=== PATIENT | male | born 1970 | race Caucasian/White ===

== ENCOUNTER 2016-09-20 19:59 | Emergency (ER) | payer OTHER ==
[~2016-09-20 19:59] MED LIST: FLEXERIL10 MG PO; IBUPROFEN600 MG PO; KETOPROFEN PO; LORTAB 5/500 TA1 TA2 PO; MEDROL4 MG/DOSE- PO; NO MEDICATIONS; PERCOCET10 PO; SOMA PO
[2016-09-20 22:00] LABS: BASOPHIL# 0.3 X10e3 (0-0.3); HEMOGLOBIN 13.7 gm/dL (13.0-16.0); LYMPHOCYTE# 0.7 X10e3 (1.0-3.5); MEAN CORPUSCULAR HEMOGLOBIN 30.7 PG (28-34); MEAN CORPUSCULAR HGB CONC 32.7 g/dL (30-36); MEAN PLATELET VOLUME 8.9 FL (6.5-11.5); MONOCYTE# 1.8 X10e3 (0-1.0); MONOCYTE% 5.4 % (3.0-12.0); NEUTROPHIL% 91.6 % (40-75); PLATELET COUNT 246 X10e3 (140-420); RED BLOOD COUNT 4.47 X10e (3.90-5.60); RED CELL DISTRIBUTION WIDTH 13.1 % (11.0-15.5); WHITE BLOOD COUNT 32.8 X10e3 (4.0-10.5)
[2016-09-20 22:02] LABS: DIFF IND YES
[2016-09-20 22:25] LABS: PLATELET ESTIMATE NORMAL (NORMAL)
[2016-09-20 22:26] LABS: BUN/CREATININE RATIO 16.36; CALCIUM SERUM 8.6 mg/dL (8.4-10.2); CREATININE SERUM 1.1 mg/dL (0.6-1.4); GLOM FILT RATE Estimated 80.7 mL/min (>60); POTASSIUM 3.7 mmol/L (3.5-5.1)
[2016-09-20 23:02] LABS: SALICYLATE <4.0 mg/dL
[2016-09-20 23:13] LABS: ACETAMINOPHEN <10 ug/mL
[2016-09-20 23:14] LABS: ALCOHOL BLOOD <5 mg/dL ([0,])
[2016-09-20 23:26] LABS: URINE SOURCE CLEAN CATCH
[2016-09-20 23:31] LABS: URINE APPEARANCE CLEAR; URINE BILIRUBIN NEG (NEG); URINE BLOOD NEG (NEG); URINE COLOR YELLOW; URINE GLUCOSE >1000 MG/DL (NEG); URINE KETONE NEG (NEG); URINE LEUKOCYTE ESTERASE NEG (NEG); URINE NITRATE NEG (NEG); URINE PROTEIN TRACE (NEG); URINE SPECIFIC GRAVITY 1.028 (1.003-1.035); URINE UROBILINOGEN 0.2 MG/DL (NEG)
[2016-09-20 23:38] LABS: CULTURE INDICATED? NO
[2016-09-20 23:42] LABS: AMPHETAMINE NEG (NEG); BARBITURATES NEG (NEG); BENZODIAZEPINES NEG (NEG); COCAINE NEG (NEG); MARIJUANA POS (NEG); OPIATES POS (NEG); TRICYCLIC ANTIDEPRESSANTS NEG (NEG); U METHADONE NEG (NEG)
[2016-09-21 01:36] LABS: BASOPHIL# 0.1 X10e3 (0-0.3); BASOPHIL% 0.3 % (0-2.5); EOSINOPHIL% 0.1 % (0.0-7.0); HEMATOCRIT 40.2 % (38.0-50.0); HEMOGLOBIN 13.1 gm/dL (13.0-16.0); LYMPHOCYTE# 1.9 X10e3 (1.0-3.5); LYMPHOCYTE% 6.6 % (17.0-45.0); MEAN CELL VOLUME 93.2 FL (83-96); MEAN CORPUSCULAR HEMOGLOBIN 30.4 PG (28-34); MEAN CORPUSCULAR HGB CONC 32.6 g/dL (30-36); MEAN PLATELET VOLUME 8.2 FL (6.5-11.5); MONOCYTE# 1.3 X10e3 (0-1.0); MONOCYTE% 4.7 % (3.0-12.0); NEUTROPHIL# 24.9 X10e3 (1.5-7.1); NEUTROPHIL% 88.3 % (40-75); PLATELET COUNT 224 X10e3 (140-420); RED BLOOD COUNT 4.31 X10e (3.90-5.60); RED CELL DISTRIBUTION WIDTH 13.1 % (11.0-15.5); WHITE BLOOD COUNT 28.2 X10e3 (4.0-10.5)
[2016-09-21 01:37] LABS: DIFF IND NO
== END 2016-09-21 02:25 | disposition home or self-care (01) ==
LOC: CED 19:59
PROVIDERS: Emergency Medicine
DX: F11.10 Opioid abuse, uncomplicated (principal); R73.9 Hyperglycemia, unspecified
CPT/HCPCS: 36415; 80048; 80307; 81003; 82947; 85025; 96360; 99284; G0480